=== PATIENT | female | born 1960 | race American Indian/Alaskan Native ===

== ENCOUNTER 2017-02-20 15:11 | Emergency (ER) | payer MEDICAID ==
[2017-02-20] MEDS ORDERED: Sodium Chloride 0.9% 10 ML Syringe FLUSH PRN (15:31)
[2017-02-20] MEDS ORDERED: Sodium Chloride 0.9% 2.5 ML Syringe FLUSH PRN (15:31)
[2017-02-20] MEDS ORDERED: Sodium Chloride 0.9% 1,000 ML IV ONE (15:33)
[2017-02-20] MEDS ORDERED: Lidocaine 2% Viscous Solution 15 ML Cup PO ONE ×2 (15:33→17:30)
[2017-02-20] MEDS ORDERED: Iopamidol 755 MG/ML 500 ML Multipack Bottle IVPUSH STA (15:38)
--- NOTE | 2017-02-20 15:39 | EDM.PDOC ---
ED HPI GENERAL MEDICAL PROBLEM - General Chief Complaint: General Stated Complaint: HEADACHE, SOB Time Seen by Provider: 02/20/17 15:17 - History of Present Illness INITIAL COMMENTS - FREE TEXT/NARRATIVE: HISTORY AND PHYSICAL: History of present illness: The patient is a 56-year-old female with a history of hypothyroidism, chronic lower back pain, colon cancer for which she underwent resection in September 2015 and is cancer free, and newly diagnosed ulcerative colitis--- she follows with Dr. Thomas at [facility] and had her last EGD in May 2016--- and presents with complaints of pain with swallowing and speaking more on the left side of her neck that started last evening. Patient denies eating anything unusual and denies any associated fever chills chest pain shortness of breath abdominal pain nausea or vomiting. The patient says she has a headache but it is more on the left side of her head but originates at her neck and radiates upward. Patient did not take anything for pain for this. The patient says she takes gabapentin for her chronic lower back pain protonix and thyroid medication. The patient says that she has been following via telephone with her GI specialist as she has changed insurance and has not been able to see him recently. She says that the colon cancer is in remission but she has had black stools for the last 2 months which her flat machine cutter is aware of and she is not concerned about and which is not new with her current throat pain. The patient also states that she has had an unexplained weight loss over the last several months for which her GI doctor is also following. She says that is not new with the throat pain either.. She has no abdominal pain. Patient denies and she has had a hysterectomy and she has also had a cholecystectomy and appendectomy. Patient has a history of tobacco use but quit 1 year ago. The patient says that she had a normal day yesterday and the pain started suddenly and she is here for evaluation. She is very stressed about this. Patient states when she does chew or open her mouth that seems to make the pain worse in her neck. It does not radiate to her posterior neck or her chest wall. Patient also states she had a left lung nodule on the left side that was followed and has never been biopsied Review of systems: As per history of present illness and below otherwise all systems reviewed and negative. Past medical history: As per history of present illness and as reviewed below otherwise noncontributory. Surgical history: As per history of present illness and as reviewed below otherwise noncontributory. Social history: No reported history of drug or alcohol abuse. Family history: As per history of present illness and as reviewed below otherwise noncontributory. Physical exam: Gen.: Well-developed well-nourished female who is speaking clearly without hoarseness muffled voice or stridor. She looks uncomfortable in the room and grimaces when she swallows her saliva. There is some exaggeration with her presentation and She is very anxious on my evaluation but is not breathless. Her vital signs have been noted by me. HEENT: Atraumatic, normocephalic, pupils reactive, negative for conjunctival pallor or scleral icterus, mucous membranes moist, throat clear without any erythema or exudates and no oropharyngeal swelling, neck supple, nontender, trachea midline. There is no gross thyromegaly but there is submandibular adenopathy bilaterally with tenderness on the left as well as some sternocleidomastoid tenderness on the left. There are no other palpable masses and no visible soft tissue swelling is seen. When the patient opened her mouth widely for me to do an oral exam she had a spasm in her sternocleidomastoid and stated that the pain got worse when she did that. Lungs: Clear to auscultation, breath sounds equal bilaterally, chest nontender. No stridor or wheezing or work of breathing Heart: S1S2, regular, negative for clicks, rubs, or JVD. Abdomen: Soft, nondistended, nontender. Negative for masses or hepatosplenomegaly. Negative for costovertebral tenderness. Pelvis: Stable nontender. Genitourinary: Deferred. Rectal: Deferred. Extremities: Atraumatic, negative for cords or calf pain. Neurovascular unremarkable. No pedal edema Neuro: Awake, alert, oriented. Cranial nerves II through XII unremarkable. Cerebellum unremarkable. Motor and sensory unremarkable throughout. Exam nonfocal. Diagnostics: EKG CBC CMP lactic acid TSH free T4 strep test CT scan of the soft tissue neck Therapeutics: IV fluids viscous lidocaine, Dilaudid Reeves clindamycin I discussed testing results with the patient and son at bedside including the CAT scan results. I have reevaluated her oral exam and in fact although the patient did not say she had to the pain she does have new significant decay to her left premolar tooth with some soft tissue swelling and tenderness in this region. There is no fluctuance or crepitance appreciated. I've advised follow- up with dentist as well as primary care and to contact her GI specialist for further care regarding her GI issues. Impression: Left neck pain/dental abscess Definitive disposition and diagnosis as appropriate pending reevaluation and review of above. Left Neck Pain Score (Numeric/FACES): 9 - Related Data Allergies Allergy/AdvReac Type Severity Reaction Status Date / Time ibuprofen [From Motrin] Allergy Acid Reflux Verified 02/20/17 15:22 ketorolac tromethamine Allergy Airway Verified 02/20/17 15:22 [From Toradol] Tightness Home Meds: Home Meds Gabapentin [Neurontin] 100 mg PO TID 04/02/15 [History] Omeprazole [Prilosec] 10 mg PO DAILY 04/02/15 [History] Acetaminophen [Tylenol] 1,000 mg PO Q4HR 02/20/17 [History] Levothyroxine 150 mcg PO ACBREAKFAST 02/20/17 [History] Melatonin 5 mg PO BEDTIME 02/20/17 [History] Past Medical History Gastrointestinal History: Reports: Other (See Below) Other Gastrointestinal History: ulcerative colitis Musculoskeletal History: Reports: Back Pain, Chronic Endocrine/Metabolic History: Reports: Hypothyroidism Oncologic (Cancer) History: Reports: Colon - Infectious Disease History Infectious Disease History: Reports: Chicken Pox - Past Surgical History GI Surgical History: Reports: Cholecystectomy Other GI Surgeries/Procedures: removal of portion of colon due to CA Female Surgical History: Reports: Oophorectomy Social & Family History - Family History Family Medical History: Noncontributory - Tobacco Use Smoking Status *Q: Former Smoker Years of Tobacco use: 5 Used Tobacco, but Quit: Yes Month Tobacco Last Used: "over a year" Second Hand Smoke Exposure: No - Caffeine Use Caffeine Use: Reports: Coffee Caffeine Use Comment: 2cups/day - Alcohol Use Days Per Week of Alcohol Use: 0 - Recreational Drug Use Recreational Drug Use: No ED ROS GENERAL - Review of Systems Review Of Systems: ROS reveals no pertinent complaints other than HPI. ED EXAM, GENERAL - Physical Exam Exam: See Below (See dictation) Course - Vital Signs Last Recorded V/S: Last Vital Signs Temp 36.7 C 02/20/17 15:17 Pulse 82 02/20/17 16:30 Resp 18 02/20/17 16:30 BP 108/62 02/20/17 16:30 Pulse Ox 99 02/20/17 16:30 - Orders/Labs/Meds Orders: Active Orders 24 hr Category Date Time Status Cardiac Monitoring [RC] . DIRECTED Care 02/20/17 15:31 Active EKG 12 Lead [EKG Documentation Completion] [RC] STAT Care 02/20/17 15:22 Active Oxygen Therapy, ED [RC] ASDIRECTED Care 02/20/17 15:31 Active Pulse Oximetry [RC] ASDIRECTED Care 02/20/17 15:31 Active Soft Tissue Neck w Cont [CT] Stat Exams 02/20/17 15:31 Taken CULTURE STREP A CONFIRMATION [] Stat Lab 02/20/17 15:35 Results STREP SCRN A RAPID W CULT CONF [] Stat Lab 02/20/17 15:35 Results Benzocaine [Hurricaine One 20%] Med 02/20/17 17:30 Once 2 each MUCMEM ONETIME ONE Clindamycin HCl [Cleocin] Med 02/20/17 17:29 Once 300 mg PO ONETIME ONE Lidocaine 2% [Xylocaine 2% Viscous] Med 02/20/17 17:30 Once 15 ml PO ONETIME ONE Sodium Chloride 0.9% [Saline Flush] Med 02/20/17 15:31 Active 10 ml FLUSH ASDIRECTED PRN Sodium Chloride 0.9% [Saline Flush] Med 02/20/17 15:31 Active 2.5 ml FLUSH ASDIRECTED PRN Saline Lock Insert [OM.PC] Stat Oth 02/20/17 15:31 Ordered Medication Orders Clindamycin HCl (Cleocin) 300 mg PO ONETIME ONE Stop: 02/20/17 17:30 Sodium Chloride (Saline Flush) 10 ml FLUSH ASDIRECTED PRN PRN Reason: Keep Vein Open Last Admin: 02/20/17 15:42 Dose: 10 ml Sodium Chloride (Saline Flush) 2.5 ml FLUSH ASDIRECTED PRN PRN Reason: Keep Vein Open Last Admin: 02/20/17 15:42 Dose: 2.5 ml Labs: Laboratory Tests 02/20/17 02/20/17 02/20/17 Range/Units 15:34 15:34 15:34 WBC 6.14 (4.0-11.0) K/uL RBC 4.31 (4.30-5.90) M/uL Hgb 13.8 (12.0-16.0) g/dL Hct 41.2 (36.0-46.0) % MCV 95.6 (80.0-98.0) fL MCH 32.0 (27.0-32.0) pg MCHC 33.5 (31.0-37.0) g/dL RDW Std Deviation 50.4 (28.0-62.0) fl RDW Coeff of Bharath 14 (11.0-15.0) % Plt Count 202 (150-400) K/uL MPV 10.20 (7.40-12.00) fL Neut % (Auto) 47.4 L (48.0-80.0) % Lymph % (Auto) 45.6 H (16.0-40.0) % Chambers % (Auto) 4.7 (0.0-15.0) % Eos % (Auto) 2.0 (0.0-7.0) % Baso % (Auto) 0.3 (0.0-1.5) % Neut # (Auto) 2.9 (1.4-5.7) K/uL Lymph # (Auto) 2.8 H (0.6-2.4) K/uL Chambers # (Auto) 0.3 (0.0-0.8) K/uL Eos # (Auto) 0.1 (0.0-0.7) K/uL Baso # (Auto) 0.0 (0.0-0.1) K/uL Nucleated RBC % 0.0 /100WBC Nucleated RBCs # 0 K/uL Lactate 0.9 (0.20-2.00) mmol/L Sodium 140 (136-146) mmol/L Potassium 3.7 (3.5-5.1) mmol/L Chloride 110 (98-110) mmol/L Carbon Dioxide 21 (21-31) mmol/L BUN 8 (6.0-23.0) mg/dL Creatinine 0.7 (0.6-1.5) mg/dL Est Cr Clr Drug Dosing 82.67 mL/min Estimated GFR (MDRD) > 60.0 ml/min Glucose 89 (60-110) mg/dL Calcium 8.9 (8.8-10.8) mg/dL Total Bilirubin 0.6 (0.1-1.5) mg/dL AST 16 (5-40) IU/L ALT 12 (8-54) IU/L Alkaline Phosphatase 82 (40-150) Total Protein 7.3 (6.0-8.0) g/dL Albumin 4.2 (3.5-5.0) g/dL Globulin 3.1 (2.0-3.5) g/dL Albumin/Globulin Ratio 1.4 (1.3-2.8) Free T4 1.03 (0.7-1.48) ng/dL TSH 3rd Generation 6.93 H (0.47-5.0) uIU/mL Meds: Medications Generic Name Dose Route Start Last Admin Trade Name Freq PRN Reason Stop Dose Admin Clindamycin HCl 300 mg 02/20/17 17:29 Cleocin PO 02/20/17 17:30 ONETIME ONE Sodium Chloride 10 ml 02/20/17 15:31 02/20/17 15:42 Saline Flush FLUSH 10 ml ASDIRECTED PRN Administration Keep Vein Open Sodium Chloride 2.5 ml 02/20/17 15:31 02/20/17 15:42 Saline Flush FLUSH 2.5 ml ASDIRECTED PRN Administration Keep Vein Open Discontinued Medications Generic Name Dose Route Start Last Admin Trade Name Freq PRN Reason Stop Dose Admin Hydromorphone HCl 1 mg 02/20/17 16:22 02/20/17 16:25 Dilaudid IVPUSH 02/20/17 16:23 1 mg ONETIME ONE Administration Sodium Chloride 1,000 mls @ 999 mls/hr 02/20/17 15:33 02/20/17 15:41 Normal Saline IV 02/20/17 16:33 999 mls/hr STAT ONE Administration Iopamidol 80 ml 02/20/17 15:38 02/20/17 15:40 Isovue Multipack-370 (76%) IVPUSH 02/20/17 15:39 80 ml ONETIME STA Administration Lidocaine HCl 15 ml 02/20/17 15:33 02/20/17 15:41 Xylocaine 2% Viscous PO 02/20/17 15:34 15 ml ONETIME ONE Administration Departure - Departure Time of Disposition: 17:32 Disposition: Home, Self-Care 01 Condition: Good Clinical Impression: Dental abscess, Neck pain - Discharge Information Forms: ED Department Discharge Additional Instructions: The following information is given to patients seen in the emergency department who are being discharged to home. This information is to outline your options for follow-up care. We provide all patients seen in our emergency department with a follow-up referral. The need for follow-up, as well as the timing and circumstances, are variable depending upon the specifics of your emergency department visit. If you don't have a primary care physician on staff, we will provide you with a referral. We always advise you to contact your personal physician following an emergency department visit to inform them of the circumstance of the visit and for follow-up with them and/or the need for any referrals to a consulting specialist. The emergency department will also refer you to a specialist when appropriate. This referral assures that you have the opportunity for followup care with a specialist. All of these measure are taken in an effort to provide you with optimal care, which includes your followup. Under all circumstances we always encourage you to contact your private physician who remains a resource for coordinating your care. When calling for followup care, please make the office aware that this follow-up is from your recent emergency room visit. If for any reason you are refused follow-up, please contact the [facility] emergency department at and ask to speak to the emergency department charge nurse. [facility] Primary care- Internal Medicine and Family [facility] [place] [phone] [facility] Specialty Care - ENT--[facility] [place] [id number] Use ice to area of pain and swelling and take all medication as prescribed. Please call and follow-up with a local dentist or oral surgeon for definitive care. You can also follow up with our ENT specialist using resources given to above. Return to ER as needed and as discussed. These also contact your GI specialist for further care regarding those issues. - My Orders Last 24 Hours: My Active Orders 02/20/17 15:22 EKG 12 Lead [EKG Documentation Completion] [RC] STAT 02/20/17 15:31 Cardiac Monitoring [RC] . DIRECTED Oxygen Therapy, ED [RC] ASDIRECTED Pulse Oximetry [RC] ASDIRECTED Soft Tissue Neck w Cont [CT] Stat Sodium Chloride 0.9% [Saline Flush] 10 ml FLUSH ASDIRECTED PRN Sodium Chloride 0.9% [Saline Flush] 2.5 ml FLUSH ASDIRECTED PRN Saline Lock Insert [OM.PC] Stat 02/20/17 15:35 CULTURE STREP A CONFIRMATION [RM] Stat STREP SCRN A RAPID W CULT CONF [RM] Stat 02/20/17 17:29 Clindamycin HCl [Cleocin] 300 mg PO ONETIME ONE 02/20/17 17:30 Benzocaine [Hurricaine One 20%] 2 each MUCMEM ONETIME ONE Lidocaine 2% [Xylocaine 2% Viscous] 15 ml PO ONETIME ONE - Assessment/Plan Last 24 Hours: My Active Orders 02/20/17 15:22 EKG 12 Lead [EKG Documentation Completion] [RC] STAT 02/20/17 15:31 Cardiac Monitoring [RC] . DIRECTED Oxygen Therapy, ED [RC] ASDIRECTED Pulse Oximetry [RC] ASDIRECTED Soft Tissue Neck w Cont [CT] Stat Sodium Chloride 0.9% [Saline Flush] 10 ml FLUSH ASDIRECTED PRN Sodium Chloride 0.9% [Saline Flush] 2.5 ml FLUSH ASDIRECTED PRN Saline Lock Insert [OM.PC] Stat 02/20/17 15:35 CULTURE STREP A CONFIRMATION [RM] Stat STREP SCRN A RAPID W CULT CONF [RM] Stat 02/20/17 17:29 Clindamycin HCl [Cleocin] 300 mg PO ONETIME ONE 02/20/17 17:30 Benzocaine [Hurricaine One 20%] 2 each MUCMEM ONETIME ONE Lidocaine 2% [Xylocaine 2% Viscous] 15 ml PO ONETIME ONE
[2017-02-20 16:11] LABS: CHLORIDE,CL 110 mmol/L (98-110); SODIUM,NA 140 mmol/L (136-146)
[2017-02-20] MEDS ORDERED: HYDROmorphone 2 MG/ML Syringe IVPUSH ONE (16:22)
[2017-02-20] MEDS ORDERED: Clindamycin HCl 150 MG Cap PO ONE (17:29)
[2017-02-20] MEDS ORDERED: Benzocaine 20% Topical Spray UD MUCMEM ONE (17:30)
[2017-02-20 17:41] VITALS: BP 135/77
--- NOTE | 2017-02-21 10:22 | CT ---
EXAM DATE: 02/20/17 PATIENT'S AGE: 56 Patient: SHAYNE MONROY Facility: [place], [place] Site . Site : [id number] Study: CT ST Neck [id number]/13/2017 4:49:50 PM Ordering Physician: Vernell Hurt Final Report: INDICATION: Left-sided neck pain with swallowing. CT NECK WITH CONTRAST TECHNIQUE: Axial multidetector CT imaging was performed through the neck following intravenous contrast administration using 80 mL Isovue 370. Coronal and sagittal reconstructions were generated. FINDINGS: No neck masses or abnormally enlarged lymph nodes are identified. There is no fluid collection suggestive of a soft tissue abscess. The included airway is within normal limits. The parotid, submandibular, and thyroid glands are unremarkable. Cervical vascular structures are within normal limits. Osseous structures show no significant findings. There are multiple missing teeth and there is dental caries and periodontal disease involving the remaining lower posterior. There is a small periapical lucency about the tip of the root of a remaining lower left tooth which has eroded through the medial cortex of the mandible, best seen on image 22 of series 203. Included skull base and lung apices are unremarkable. IMPRESSION: Periapical lucency about the tip of the root of a remaining lower left tooth with erosion through the medial mandibular cortex. This could be a source of left-sided pain. No other cause for left-sided neck pain is evident. BIRDIE RINALDI MD [employer] Dictated by Rakesh Rinaldi MD @ 02/20/2017 5:21:32 PM Dictated by: Rakesh Rinaldi MD @ 02/20/2017 17:24:27 (Electronic Signature) Report Signed by Proxy. [facility]
== END 2017-02-20 17:48 | disposition home or self-care (01) ==
LOC: MW.ED 15:11
DX: K04.7 Periapical abscess without sinus (principal); M54.2 Cervicalgia; E03.9 Hypothyroidism, unspecified; Z90.49 Acquired absence of other specified parts of digestive tract; Z85.038 Personal history of other malignant neoplasm of large intestine; Z79.899 Other long term (current) drug therapy; Z88.6 Allergy status to analgesic agent; Z87.891 Personal history of nicotine dependence
CPT/HCPCS: 70491; 80053; 83605; 84439; 84443; 85025; 87081; 87880; 93005; 96361; 96374; 99284; A9270; J1170; J7040; Q9967

== ENCOUNTER 2017-04-02 09:45 | Emergency (ER) | payer SELFPAY ==
--- NOTE | 2017-04-02 09:55 | EDM.PDOC ---
ED HPI GENERAL MEDICAL PROBLEM - General Chief Complaint: Abdominal Pain Stated Complaint: ABDOMINAL PAIN Time Seen by Provider: 04/02/17 09:55 Source of Information: Reports: Patient History Limitations: Reports: No Limitations - History of Present Illness INITIAL COMMENTS - FREE TEXT/NARRATIVE: HISTORY AND PHYSICAL: []56-year-old female presenting with upper quadrant pain on the left History of Present Illness: []Pain has been present for the last 3 days. She does report diarrhea. She has been vomiting this morning. Patient states that she has had ulcers in the past but not feeling like her ulcer stated Reports cromion in her water at home and she is concerned about lead levels causing this Review of her chart reveals history of ulcerative colitis as above November 2015 Review of Systems: As per history of present illness and below otherwise all systems reviewed and negative. Past medical history: As per history of present illness and as reviewed below otherwise noncontributory. Surgical history: As per history of present illness and as reviewed below otherwise noncontributory. Social history: No reported history of drug or alcohol abuse. Family history: As per history of present illness and as reviewed below otherwise noncontributory. Physical exam: HEENT: Atraumatic, normocehpalic, pupils reactive, negative for conjunctival pallor or scleral icterus, mucous membranes moist, throat clear, neck supple, nontender, trachea midline. Lungs: Clear to auscultation, breath sounds equal bilaterally, chest non tender. Heart: S1S2, regular, negative for clicks, rubs, or JVD. Abdomen: Soft, nondistended, tender left epigastric no rebound significant guarding. Negative for masses or hepatossplenmegaly. Negative for costovertebral tenderness. Pelvis: Stable nontender. Genitourinary: Deferred. Rectal: Deferred Extremities: Atraumatic, negative for cords or calf pain. Neurovascular unremarkable. Neuro: Awake, alert, oriented. Cranial nerves II through XII unremarkable. Cerebellum unremarkable. Motor and sensory unremarkable throughout. Exam nonfocal. Diagnostics: [CBC CMP amylase lipase H. pylori abdominal CT with contrast EKG] Therapeutics: [Dilaudid and Zofran Pepcid normal saline] Impression: [] Plan: [] Definitive disposition and diagnosis as appropriate pending reevaluation and review of above. Onset: Sudden Duration: Day(s): (3) Location: Reports: Abdomen (Upper left) Quality: Reports: Stabbing Severity: Severe Improves with: Reports: None abdomen Pain Score (Numeric/FACES): 9 - Related Data Allergies Allergy/AdvReac Type Severity Reaction Status Date / Time ibuprofen [From Motrin] Allergy Acid Reflux Verified 04/02/17 09:49 ketorolac tromethamine Allergy Airway Verified 04/02/17 09:49 [From Toradol] Tightness Home Meds: Home Meds Gabapentin [Neurontin] 1,200 mg PO TID 04/02/15 [History] Levothyroxine 150 mcg PO ACBREAKFAST 02/20/17 [History] GI Cocktail 30 ml PO ONETIME #1 bottle 04/02/17 [Rx] Pantoprazole [ProTONIX] 40 mg PO DAILY 04/02/17 [History] Past Medical History Gastrointestinal History: Reports: Other (See Below) Other Gastrointestinal History: ulcerative colitis Musculoskeletal History: Reports: Back Pain, Chronic Endocrine/Metabolic History: Reports: Hypothyroidism Oncologic (Cancer) History: Reports: Colon - Infectious Disease History Infectious Disease History: Reports: Chicken Pox - Past Surgical History GI Surgical History: Reports: Cholecystectomy Other GI Surgeries/Procedures: removal of portion of colon due to CA Female Surgical History: Reports: Oophorectomy Social & Family History - Family History Family Medical History: Noncontributory - Tobacco Use Smoking Status *Q: Former Smoker Years of Tobacco use: 5 Used Tobacco, but Quit: Yes Month Tobacco Last Used: "over a year" Second Hand Smoke Exposure: No - Caffeine Use Caffeine Use: Reports: Coffee Caffeine Use Comment: 2cups/day - Alcohol Use Days Per Week of Alcohol Use: 0 - Recreational Drug Use Recreational Drug Use: No ED ROS GENERAL - Review of Systems Review Of Systems: See Below (History of ulcerative colitis) ED EXAM, GI/ABD - Physical Exam Exam: See Below Course - Vital Signs Last Recorded V/S: Last Vital Signs Temp 36.7 C 04/02/17 09:52 Pulse 80 04/02/17 09:52 Resp 20 04/02/17 09:52 BP 138/89 04/02/17 09:52 Pulse Ox - Orders/Labs/Meds Orders: Active Orders 24 hr Category Date Time Status EKG Documentation Completion [RC] STAT Care 04/02/17 10:17 Active LEAD [REF] Stat Lab 04/02/17 09:50 Received Sodium Chloride 0.9% [Normal Saline] 1,000 ml Med 04/02/17 12:39 Active IV STAT Sodium Chloride 0.9% [Saline Flush] Med 04/02/17 10:18 Active 10 ml FLUSH ASDIRECTED PRN Sodium Chloride 0.9% [Saline Flush] Med 04/02/17 10:18 Active 2.5 ml FLUSH ASDIRECTED PRN Saline Lock Insert [OM.PC] Stat Oth 04/02/17 10:17 Ordered Medication Orders Sodium Chloride (Normal Saline) 1,000 mls @ 999 mls/hr IV STAT ONE Stop: 04/02/17 13:39 Last Admin: 04/02/17 12:46 Dose: 999 mls/hr Sodium Chloride (Saline Flush) 10 ml FLUSH ASDIRECTED PRN PRN Reason: Keep Vein Open Last Admin: 04/02/17 10:27 Dose: 10 ml Sodium Chloride (Saline Flush) 2.5 ml FLUSH ASDIRECTED PRN PRN Reason: Keep Vein Open Last Admin: 04/02/17 10:27 Dose: 2.5 ml Labs: Laboratory Tests 04/02/17 04/02/17 04/02/17 Range/Units 09:50 09:50 09:50 WBC 7.49 (4.0-11.0) K/uL RBC 4.50 (4.30-5.90) M/uL Hgb 14.5 (12.0-16.0) g/dL Hct 43.2 (36.0-46.0) % MCV 96.0 (80.0-98.0) fL MCH 32.2 H (27.0-32.0) pg MCHC 33.6 (31.0-37.0) g/dL RDW Std Deviation 49.0 (28.0-62.0) fl RDW Coeff of Bharath 14 (11.0-15.0) % Plt Count 212 (150-400) K/uL MPV 10.40 (7.40-12.00) fL Neut % (Auto) 68.0 (48.0-80.0) % Lymph % (Auto) 26.4 (16.0-40.0) % [place] % (Auto) 4.8 (0.0-15.0) % Eos % (Auto) 0.7 (0.0-7.0) % Baso % (Auto) 0.1 (0.0-1.5) % Neut # (Auto) 5.1 (1.4-5.7) K/uL Lymph # (Auto) 2.0 (0.6-2.4) K/uL [place] # (Auto) 0.4 (0.0-0.8) K/uL Eos # (Auto) 0.1 (0.0-0.7) K/uL Baso # (Auto) 0.0 (0.0-0.1) K/uL Nucleated RBC % 0.0 /100WBC Nucleated RBCs # 0 K/uL Lactate (0.20-2.00) mmol/L Sodium 142 (136-146) mmol/L Potassium 3.8 (3.5-5.1) mmol/L Chloride 108 (98-110) mmol/L Carbon Dioxide 25 (21-31) mmol/L BUN 7 (6.0-23.0) mg/dL Creatinine 0.8 (0.6-1.5) mg/dL Est Cr Clr Drug Dosing 72.34 mL/min Estimated GFR (MDRD) > 60.0 ml/min Glucose 105 (60-110) mg/dL Calcium 9.2 (8.8-10.8) mg/dL Total Bilirubin 0.4 (0.1-1.5) mg/dL AST 16 (5-40) IU/L ALT 14 (8-54) IU/L Alkaline Phosphatase 84 (40-150) Ammonia 52 (14-68) UG/DL Total Protein 7.7 (6.0-8.0) g/dL Albumin 4.2 (3.5-5.0) g/dL Globulin 3.5 (2.0-3.5) g/dL Albumin/Globulin Ratio 1.2 L (1.3-2.8) Amylase 24 (10-90) U/L Lipase 9 (7-80) U/L TSH 3rd Generation 34.55 H (0.47-5.0) uIU/mL Urine Color Urine Appearance Urine pH (5.0-8.0) Ur Specific [place] (1.001-1.035) Urine Protein (NEGATIVE) mg/dL Urine Glucose (UA) (NEGATIVE) mg/dL Urine Ketones (NEGATIVE) mg/dL Urine Occult Blood (NEGATIVE) Urine Nitrite (NEGATIVE) Urine Bilirubin (NEGATIVE) Urine Urobilinogen (<2.0) EU/dL Ur Leukocyte Esterase (NEGATIVE) Urine RBC (0-2/HPF) Urine WBC (0-5/HPF) Ur Epithelial Cells (NONE-FEW) Urine Bacteria (NEGATIVE) Urine HCG, Qual (NEGATIVE) Urine Opiates Screen (NEGATIVE) Ur Oxycodone Screen (NEGATIVE) Urine Methadone Screen (NEGATIVE) Ur Barbiturates Screen (NEGATIVE) Ur Phencyclidine Scrn (NEGATIVE) Ur Amphetamine Screen (NEGATIVE) U Methamphetamines Scrn (NEGATIVE) U Benzodiazepines Scrn (NEGATIVE) U Cocaine Metab Screen (NEGATIVE) U Marijuana (THC) Screen (NEGATIVE) H. pylori IgG Antibody (NEG) 04/02/17 04/02/17 04/02/17 Range/Units 09:50 10:00 10:00 WBC (4.0-11.0) K/uL RBC (4.30-5.90) M/uL Hgb (12.0-16.0) g/dL Hct (36.0-46.0) % MCV (80.0-98.0) fL MCH (27.0-32.0) pg MCHC (31.0-37.0) g/dL RDW Std Deviation (28.0-62.0) fl RDW Coeff of Bharath (11.0-15.0) % Plt Count (150-400) K/uL MPV (7.40-12.00) fL Neut % (Auto) (48.0-80.0) % Lymph % (Auto) (16.0-40.0) % [place] % (Auto) (0.0-15.0) % Eos % (Auto) (0.0-7.0) % Baso % (Auto) (0.0-1.5) % Neut # (Auto) (1.4-5.7) K/uL Lymph # (Auto) (0.6-2.4) K/uL [place] # (Auto) (0.0-0.8) K/uL Eos # (Auto) (0.0-0.7) K/uL Baso # (Auto) (0.0-0.1) K/uL Nucleated RBC % /100WBC Nucleated RBCs # K/uL Lactate (0.20-2.00) mmol/L Sodium (136-146) mmol/L Potassium (3.5-5.1) mmol/L Chloride (98-110) mmol/L Carbon Dioxide (21-31) mmol/L BUN (6.0-23.0) mg/dL Creatinine (0.6-1.5) mg/dL Est Cr Clr Drug Dosing mL/min Estimated GFR (MDRD) ml/min Glucose (60-110) mg/dL Calcium (8.8-10.8) mg/dL Total Bilirubin (0.1-1.5) mg/dL AST (5-40) IU/L ALT (8-54) IU/L Alkaline Phosphatase (40-150) Ammonia (14-68) UG/DL Total Protein (6.0-8.0) g/dL Albumin (3.5-5.0) g/dL Globulin (2.0-3.5) g/dL Albumin/Globulin Ratio (1.3-2.8) Amylase (10-90) U/L Lipase (7-80) U/L TSH 3rd Generation (0.47-5.0) uIU/mL Urine Color YELLOW Urine Appearance CLEAR Urine pH 7.0 (5.0-8.0) Ur Specific [place] 1.015 (1.001-1.035) Urine Protein NEGATIVE (NEGATIVE) mg/dL Urine Glucose (UA) NEGATIVE (NEGATIVE) mg/dL Urine Ketones NEGATIVE (NEGATIVE) mg/dL Urine Occult Blood SMALL H (NEGATIVE) Urine Nitrite NEGATIVE (NEGATIVE) Urine Bilirubin NEGATIVE (NEGATIVE) Urine Urobilinogen 0.2 (<2.0) EU/dL Ur Leukocyte Esterase NEGATIVE (NEGATIVE) Urine RBC 0-3 (0-2/HPF) Urine WBC 0-1 (0-5/HPF) Ur Epithelial Cells RARE (NONE-FEW) Urine Bacteria RARE (NEGATIVE) Urine HCG, Qual NEGATIVE (NEGATIVE) Urine Opiates Screen (NEGATIVE) Ur Oxycodone Screen (NEGATIVE) Urine Methadone Screen (NEGATIVE) Ur Barbiturates Screen (NEGATIVE) Ur Phencyclidine Scrn (NEGATIVE) Ur Amphetamine Screen (NEGATIVE) U Methamphetamines Scrn (NEGATIVE) U Benzodiazepines Scrn (NEGATIVE) U Cocaine Metab Screen (NEGATIVE) U Marijuana (THC) Screen (NEGATIVE) H. pylori IgG Antibody NEGATIVE (NEG) 04/02/17 04/02/17 Range/Units 10:00 10:29 WBC (4.0-11.0) K/uL RBC (4.30-5.90) M/uL Hgb (12.0-16.0) g/dL Hct (36.0-46.0) % MCV (80.0-98.0) fL MCH (27.0-32.0) pg MCHC (31.0-37.0) g/dL RDW Std Deviation (28.0-62.0) fl RDW Coeff of Bharath (11.0-15.0) % Plt Count (150-400) K/uL MPV (7.40-12.00) fL Neut % (Auto) (48.0-80.0) % Lymph % (Auto) (16.0-40.0) % [place] % (Auto) (0.0-15.0) % Eos % (Auto) (0.0-7.0) % Baso % (Auto) (0.0-1.5) % Neut # (Auto) (1.4-5.7) K/uL Lymph # (Auto) (0.6-2.4) K/uL [place] # (Auto) (0.0-0.8) K/uL Eos # (Auto) (0.0-0.7) K/uL Baso # (Auto) (0.0-0.1) K/uL Nucleated RBC % /100WBC Nucleated RBCs # K/uL Lactate 2.3 H (0.20-2.00) mmol/L Sodium (136-146) mmol/L Potassium (3.5-5.1) mmol/L Chloride (98-110) mmol/L Carbon Dioxide (21-31) mmol/L BUN (6.0-23.0) mg/dL Creatinine (0.6-1.5) mg/dL Est Cr Clr Drug Dosing mL/min Estimated GFR (MDRD) ml/min Glucose (60-110) mg/dL Calcium (8.8-10.8) mg/dL Total Bilirubin (0.1-1.5) mg/dL AST (5-40) IU/L ALT (8-54) IU/L Alkaline Phosphatase (40-150) Ammonia (14-68) UG/DL Total Protein (6.0-8.0) g/dL Albumin (3.5-5.0) g/dL Globulin (2.0-3.5) g/dL Albumin/Globulin Ratio (1.3-2.8) Amylase (10-90) U/L Lipase (7-80) U/L TSH 3rd Generation (0.47-5.0) uIU/mL Urine Color Urine Appearance Urine pH (5.0-8.0) Ur Specific [place] (1.001-1.035) Urine Protein (NEGATIVE) mg/dL Urine Glucose (UA) (NEGATIVE) mg/dL Urine Ketones (NEGATIVE) mg/dL Urine Occult Blood (NEGATIVE) Urine Nitrite (NEGATIVE) Urine Bilirubin (NEGATIVE) Urine Urobilinogen (<2.0) EU/dL Ur Leukocyte Esterase (NEGATIVE) Urine RBC (0-2/HPF) Urine WBC (0-5/HPF) Ur Epithelial Cells (NONE-FEW) Urine Bacteria (NEGATIVE) Urine HCG, Qual (NEGATIVE) Urine Opiates Screen NEGATIVE (NEGATIVE) Ur Oxycodone Screen NEGATIVE (NEGATIVE) Urine Methadone Screen NEGATIVE (NEGATIVE) Ur Barbiturates Screen NEGATIVE (NEGATIVE) Ur Phencyclidine Scrn NEGATIVE (NEGATIVE) Ur Amphetamine Screen NEGATIVE (NEGATIVE) U Methamphetamines Scrn NEGATIVE (NEGATIVE) U Benzodiazepines Scrn NEGATIVE (NEGATIVE) U Cocaine Metab Screen NEGATIVE (NEGATIVE) U Marijuana (THC) Screen POSITIVE (NEGATIVE) H. pylori IgG Antibody (NEG) Meds: Medications Generic Name Dose Route Start Last Admin Trade Name Freq PRN Reason Stop Dose Admin Sodium Chloride 1,000 mls @ 999 mls/hr 04/02/17 12:39 04/02/17 12:46 Normal Saline IV 04/02/17 13:39 999 mls/hr STAT ONE Administration Sodium Chloride 10 ml 04/02/17 10:18 04/02/17 10:27 Saline Flush FLUSH 10 ml ASDIRECTED PRN Administration Keep Vein Open Sodium Chloride 2.5 ml 04/02/17 10:18 04/02/17 10:27 Saline Flush FLUSH 2.5 ml ASDIRECTED PRN Administration Keep Vein Open Discontinued Medications Generic Name Dose Route Start Last Admin Trade Name Freq PRN Reason Stop Dose Admin Al Hydroxide/Mg Hydroxide 15 0 ml 04/02/17 12:38 04/02/17 12:46 ml/ Metoclopramide HCl 5 mg/ PO 04/02/17 12:39 25 each Lidocaine HCl 5 ml ONETIME ONE Administration Famotidine 20 mg 04/02/17 10:23 04/02/17 10:31 Pepcid IVPUSH 04/02/17 10:24 20 mg ONETIME ONE Administration Hydromorphone HCl 1 mg 04/02/17 10:18 04/02/17 10:25 Dilaudid IVPUSH 04/02/17 10:19 1 mg ONETIME ONE Administration Hydromorphone HCl 1 mg 04/02/17 11:32 04/02/17 11:37 Dilaudid IVPUSH 04/02/17 11:33 1 mg ONETIME ONE Administration Sodium Chloride 1,000 mls @ 999 mls/hr 04/02/17 10:18 04/02/17 10:25 Normal Saline IV 04/02/17 11:18 999 mls/hr STAT ONE Administration Iopamidol 85 ml 04/02/17 11:29 04/02/17 11:29 Isovue Multipack-370 (76%) IVPUSH 04/02/17 11:30 85 ml ONETIME STA Administration Ondansetron HCl 4 mg 04/02/17 10:24 04/02/17 10:31 Zofran IVPUSH 04/02/17 10:25 4 mg ONETIME ONE Administration Departure - Departure Time of Disposition: 13:06 Disposition: Home, Self-Care 01 Condition: Good Clinical Impression: Abdominal pain Qualifiers: Abdominal location: left upper quadrant Qualified Code(s): R10.12 - Left upper quadrant pain - Discharge Information Prescriptions: GI Cocktail 30 ml PO ONETIME #1 bottle Instructions: Nausea and Vomiting, Adult, [id number] Referrals: PCP,None [Primary Care Provider] - Anthony Dickson MD [Physician] - Forms: ED Department Discharge Additional Instructions: The following information is given to patients seen in the emergency department who are being discharged to home. This information is to outline your options for follow-up care. We provide all patients seen in our emergency department with a follow-up referral. The need for follow-up, as well as the timing and circumstances, are variable depending upon the specifics of your emergency department visit. If you don't have a primary care physician on staff, we will provide you with a referral. We always advise you to contact your personal physician following an emergency department visit to inform them of the circumstance of the visit and for follow-up with them and/or the need for any referrals to a consulting specialist. The emergency department will also refer you to a specialist when appropriate. This referral assures that you have the opportunity for followup care with a specialist. All of these measure are taken in an effort to provide you with optimal care, which includes your followup. Under all circumstances we always encourage you to contact your private physician who remains a resource for coordinating your care. When calling for followup care, please make the office aware that this follow-up is from your recent emergency room visit. If for any reason you are refused follow-up, please contact the [facility] emergency department at and asked to speak to the emergency department charge nurse. Referral has been made for you to see Dr. Yessi TINEO [facility] Professional Building [address] [place] [address], [address] [place] [address] Please call for follow-up appointment - My Orders Last 24 Hours: My Active Orders 04/02/17 09:50 LEAD [REF] Stat 04/02/17 10:17 EKG Documentation Completion [RC] STAT Saline Lock Insert [OM.PC] Stat 04/02/17 10:18 Sodium Chloride 0.9% [Saline Flush] 10 ml FLUSH ASDIRECTED PRN Sodium Chloride 0.9% [Saline Flush] 2.5 ml FLUSH ASDIRECTED PRN 04/02/17 12:39 Sodium Chloride 0.9% [Normal Saline] 1,000 ml IV STAT - Assessment/Plan Last 24 Hours: My Active Orders 04/02/17 09:50 LEAD [REF] Stat 04/02/17 10:17 EKG Documentation Completion [RC] STAT Saline Lock Insert [OM.PC] Stat 04/02/17 10:18 Sodium Chloride 0.9% [Saline Flush] 10 ml FLUSH ASDIRECTED PRN Sodium Chloride 0.9% [Saline Flush] 2.5 ml FLUSH ASDIRECTED PRN 04/02/17 12:39 Sodium Chloride 0.9% [Normal Saline] 1,000 ml IV STAT
[2017-04-02] MEDS ORDERED: Sodium Chloride 0.9% 2.5 ML Syringe FLUSH PRN (10:18)
[2017-04-02] MEDS ORDERED: Sodium Chloride 0.9% 1,000 ML IV ONE ×2 (10:18→12:39)
[2017-04-02] MEDS ORDERED: HYDROmorphone 1 MG/ML Syringe IVPUSH ONE ×2 (10:18→11:32)
[2017-04-02] MEDS ORDERED: Sodium Chloride 0.9% 10 ML Syringe FLUSH PRN (10:18)
[2017-04-02] MEDS ORDERED: Famotidine 20 MG/2 ML SDV IVPUSH ONE (10:23)
[2017-04-02] MEDS ORDERED: Ondansetron 4 MG/2 ML SDV IVPUSH ONE (10:24)
[2017-04-02 10:50] LABS: CHLORIDE,CL 108 mmol/L (98-110); SODIUM,NA 142 mmol/L (136-146)
[2017-04-02] MEDS ORDERED: Iopamidol 755 MG/ML 500 ML Multipack Bottle IVPUSH STA (11:29)
--- NOTE | 2017-04-02 11:47 | CT ---
CT of the abdomen and pelvis with contrast. HISTORY: Pain TECHNIQUE: Axial CT images were obtained of the abdomen and pelvis following administration of 85 mL of Isovue-370 in the left antecubital fossa without complication. Coronal and sagittal reconstructi ons obtained. FINDINGS: There is a partially visualized intrafissural lymph node within the right major fissure. Tiny 3 mm s ubpleural nodule within the left lower lobe laterally. The liver, adrenal glands, and pancreas appear grossly unremarkable. Small splenic cysts noted. The common bile duct measures up to 1.5 cm. Cholecystectomy. The kidneys enhance and function symmetrically without evidence of obstructive uropathy. The large and small bowel are normal in caliber without evidence of obstruction. The appendix appear s normal. No free pelvic fluid. The urinary bladder is decompressed. Subchondral cystic change noted within the hips bilaterally. IMPRESSION: 1. No acute findings demonstrated within the abdomen or pelvis. 2. Degenerative changes noted within the hips bilaterally. 3. Cholecystectomy with a mild prominence of the common bile duct, likely reservoir effect.
[2017-04-02] MEDS ORDERED: Alum Hydrox/Mag Hydrox/Simeth 15 ML, Metoclopramide 5 MG, Lidocaine 2% 5 ML PO ONE ×3 (12:38)
[2017-04-02 19:06] VITALS: BP 116/70
== END 2017-04-02 13:27 | disposition home or self-care (01) ==
LOC: MW.ED 09:45
DX: R10.12 Left upper quadrant pain (principal); E03.9 Hypothyroidism, unspecified; Z90.49 Acquired absence of other specified parts of digestive tract; Z88.6 Allergy status to analgesic agent; Z90.710 Acquired absence of both cervix and uterus; Z87.891 Personal history of nicotine dependence; Z79.899 Other long term (current) drug therapy
CPT/HCPCS: 36415; 74177; 80053; 80305; 81001; 81025; 82140; 82150; 83605; 83655; 83690; 84443; 85025; 86677; 93005; 96361; 96374; 96375; 96376; 99284; A9270; J1170; J2405; J7040; Q9967

== ENCOUNTER 2017-04-18 15:28 | Emergency (ER) | payer SELFPAY ==
--- NOTE | 2017-04-18 15:41 | EDM.PDOC ---
ED HPI GENERAL MEDICAL PROBLEM - General Stated Complaint: CHEST PAIN Time Seen by Provider: 04/18/17 15:40 Source of Information: Reports: Patient - History of Present Illness INITIAL COMMENTS - FREE TEXT/NARRATIVE: HISTORY AND PHYSICAL: History of present illness: []Patient presents with left upper quadrant pain radiating to the back similar to previous, she was seen 2 weeks prior with similar complaint normal lab and CT abdomen pelvis at that time. Patient was referred to general surgery at that time, she did not follow with general surgeon. She has history of multiple colon polyps and last colonoscopy September 2015 No fever nausea vomiting chills sweats no chest pain shortness breath headache dizziness or palpitation no bowel or urine symptoms Review of systems: As per history of present illness and below otherwise all systems reviewed and negative. Past medical history: As per history of present illness and as reviewed below otherwise noncontributory. Surgical history: As per history of present illness and as reviewed below otherwise noncontributory. Social history: No reported history of drug or alcohol abuse. Family history: As per history of present illness and as reviewed below otherwise noncontributory. Physical exam: HEENT: Atraumatic, normocephalic, pupils reactive, negative for conjunctival pallor or scleral icterus, mucous membranes moist, throat clear, neck supple, nontender, trachea midline. Lungs: Clear to auscultation, breath sounds equal bilaterally, chest nontender. Heart: S1S2, regular, negative for clicks, rubs, or JVD. Abdomen: Soft, nondistended, nontender. Negative for masses or hepatosplenomegaly. Negative for costovertebral tenderness. Pelvis: Stable nontender. Genitourinary: Deferred. Rectal: Deferred. Extremities: Atraumatic, negative for cords or calf pain. Neurovascular unremarkable. Neuro: Awake, alert, oriented. Cranial nerves II through XII unremarkable. Cerebellum unremarkable. Motor and sensory unremarkable throughout. Exam nonfocal. Diagnostics: [CBC, CMP, UA, troponin, amylase lipase, CRP EKG Chest 1 view Therapeutics: []1 L normal saline bolus Bentyl 20 mg by mouth 4 times a day when necessary #40 no refill Impression: []Abdominal pain Drug-seeking behavior Definitive disposition and diagnosis as appropriate pending reevaluation and review of above. Chest Pain Score (Numeric/FACES): 10 - Related Data Allergies Allergy/AdvReac Type Severity Reaction Status Date / Time ibuprofen [From Motrin] Allergy Acid Reflux Verified 04/18/17 15:33 ketorolac tromethamine Allergy Airway Verified 04/18/17 15:33 [From Toradol] Tightness Home Meds: Home Meds Gabapentin [Neurontin] 1,200 mg PO TID 04/02/15 [History] Levothyroxine 150 mcg PO ACBREAKFAST 02/20/17 [History] GI Cocktail 30 ml PO ONETIME #1 bottle 04/02/17 [Rx] Pantoprazole [ProTONIX] 40 mg PO DAILY 04/02/17 [History] Past Medical History - Past Health History Medical/Surgical History: Denies Medical/Surgical History Gastrointestinal History: Reports: Other (See Below) Other Gastrointestinal History: ulcerative colitis Musculoskeletal History: Reports: Back Pain, Chronic Endocrine/Metabolic History: Reports: Hypothyroidism Oncologic (Cancer) History: Reports: Colon - Infectious Disease History Infectious Disease History: Reports: Chicken Pox - Past Surgical History GI Surgical History: Reports: Cholecystectomy Other GI Surgeries/Procedures: removal of portion of colon due to CA Female Surgical History: Reports: Oophorectomy Social & Family History - Family History Family Medical History: Noncontributory - Tobacco Use Smoking Status *Q: Former Smoker Years of Tobacco use: 5 Used Tobacco, but Quit: Yes Month Tobacco Last Used: "over a year" Second Hand Smoke Exposure: No - Caffeine Use Caffeine Use: Reports: Coffee Caffeine Use Comment: 2cups/day - Alcohol Use Days Per Week of Alcohol Use: 0 - Recreational Drug Use Recreational Drug Use: No ED ROS GENERAL - Review of Systems Review Of Systems: ROS reveals no pertinent complaints other than HPI. ED EXAM, GENERAL - Physical Exam Exam: See Below Course - Vital Signs Last Recorded V/S: Last Vital Signs Temp 36.6 C 04/18/17 15:33 Pulse 83 04/18/17 16:42 Resp 16 04/18/17 16:42 BP 117/85 04/18/17 16:42 Pulse Ox 99 04/18/17 16:42 - Orders/Labs/Meds Orders: Active Orders 24 hr Category Date Time Status EKG Documentation Completion [RC] STAT Care 04/18/17 15:41 Active Labs: Laboratory Tests 04/18/17 04/18/17 04/18/17 Range/Units 15:41 15:41 15:41 WBC 7.46 (4.0-11.0) K/uL RBC 4.39 (4.30-5.90) M/uL Hgb 14.2 (12.0-16.0) g/dL Hct 42.7 (36.0-46.0) % MCV 97.3 (80.0-98.0) fL MCH 32.3 H (27.0-32.0) pg MCHC 33.3 (31.0-37.0) g/dL RDW Std Deviation 49.9 (28.0-62.0) fl RDW Coeff of Bharath 14 (11.0-15.0) % Plt Count 202 (150-400) K/uL MPV 10.00 (7.40-12.00) fL Neut % (Auto) 53.3 (48.0-80.0) % Lymph % (Auto) 39.3 (16.0-40.0) % Archer % (Auto) 5.0 (0.0-15.0) % Eos % (Auto) 1.9 (0.0-7.0) % Baso % (Auto) 0.5 (0.0-1.5) % Neut # (Auto) 4.0 (1.4-5.7) K/uL Lymph # (Auto) 2.9 H (0.6-2.4) K/uL Archer # (Auto) 0.4 (0.0-0.8) K/uL Eos # (Auto) 0.1 (0.0-0.7) K/uL Baso # (Auto) 0.0 (0.0-0.1) K/uL Nucleated RBC % 0.0 /100WBC Nucleated RBCs # 0 K/uL Sodium 144 (136-146) mmol/L Potassium 3.8 (3.5-5.1) mmol/L Chloride 111 H (98-110) mmol/L Carbon Dioxide 24 (21-31) mmol/L BUN 10 (6.0-23.0) mg/dL Creatinine 0.8 (0.6-1.5) mg/dL Est Cr Clr Drug Dosing 72.34 mL/min Estimated GFR (MDRD) > 60.0 ml/min Glucose 78 (60-110) mg/dL Calcium 9.0 (8.8-10.8) mg/dL Total Bilirubin 0.2 (0.1-1.5) mg/dL AST 15 (5-40) IU/L ALT 12 (8-54) IU/L Alkaline Phosphatase 85 (40-150) Troponin I < 0.10 (0.0-0.29) NG/ML C-Reactive Protein 0.09 (0.0-0.5) mg/dL Total Protein 7.7 (6.0-8.0) g/dL Albumin 4.0 (3.5-5.0) g/dL Globulin 3.7 H (2.0-3.5) g/dL Albumin/Globulin Ratio 1.1 L (1.3-2.8) Amylase 28 (10-90) U/L Lipase 8 (7-80) U/L Urine Color Urine Appearance Urine pH (5.0-8.0) Ur Specific [place] (1.001-1.035) Urine Protein (NEGATIVE) mg/dL Urine Glucose (UA) (NEGATIVE) mg/dL Urine Ketones (NEGATIVE) mg/dL Urine Occult Blood (NEGATIVE) Urine Nitrite (NEGATIVE) Urine Bilirubin (NEGATIVE) Urine Urobilinogen (<2.0) EU/dL Ur Leukocyte Esterase (NEGATIVE) Urine RBC (0-2/HPF) Urine WBC (0-5/HPF) Ur Epithelial Cells (NONE-FEW) Urine Bacteria (NEGATIVE) 04/18/17 Range/Units 16:45 WBC (4.0-11.0) K/uL RBC (4.30-5.90) M/uL Hgb (12.0-16.0) g/dL Hct (36.0-46.0) % MCV (80.0-98.0) fL MCH (27.0-32.0) pg MCHC (31.0-37.0) g/dL RDW Std Deviation (28.0-62.0) fl RDW Coeff of Bharath (11.0-15.0) % Plt Count (150-400) K/uL MPV (7.40-12.00) fL Neut % (Auto) (48.0-80.0) % Lymph % (Auto) (16.0-40.0) % Archer % (Auto) (0.0-15.0) % Eos % (Auto) (0.0-7.0) % Baso % (Auto) (0.0-1.5) % Neut # (Auto) (1.4-5.7) K/uL Lymph # (Auto) (0.6-2.4) K/uL [place] # (Auto) (0.0-0.8) K/uL Eos # (Auto) (0.0-0.7) K/uL Baso # (Auto) (0.0-0.1) K/uL Nucleated RBC % /100WBC Nucleated RBCs # K/uL Sodium (136-146) mmol/L Potassium (3.5-5.1) mmol/L Chloride (98-110) mmol/L Carbon Dioxide (21-31) mmol/L BUN (6.0-23.0) mg/dL Creatinine (0.6-1.5) mg/dL Est Cr Clr Drug Dosing mL/min Estimated GFR (MDRD) ml/min Glucose (60-110) mg/dL Calcium (8.8-10.8) mg/dL Total Bilirubin (0.1-1.5) mg/dL AST (5-40) IU/L ALT (8-54) IU/L Alkaline Phosphatase (40-150) Troponin I (0.0-0.29) NG/ML C-Reactive Protein (0.0-0.5) mg/dL Total Protein (6.0-8.0) g/dL Albumin (3.5-5.0) g/dL Globulin (2.0-3.5) g/dL Albumin/Globulin Ratio (1.3-2.8) Amylase (10-90) U/L Lipase (7-80) U/L Urine Color YELLOW Urine Appearance CLEAR Urine pH 7.5 (5.0-8.0) Ur Specific [place] 1.015 (1.001-1.035) Urine Protein NEGATIVE (NEGATIVE) mg/dL Urine Glucose (UA) NEGATIVE (NEGATIVE) mg/dL Urine Ketones NEGATIVE (NEGATIVE) mg/dL Urine Occult Blood SMALL H (NEGATIVE) Urine Nitrite NEGATIVE (NEGATIVE) Urine Bilirubin NEGATIVE (NEGATIVE) Urine Urobilinogen 0.2 (<2.0) EU/dL Ur Leukocyte Esterase NEGATIVE (NEGATIVE) Urine RBC 0-2 (0-2/HPF) Urine WBC 0-1 (0-5/HPF) Ur Epithelial Cells OCCASIONAL (NONE-FEW) Urine Bacteria FEW (NEGATIVE) Departure - Departure Time of Disposition: 17:14 Disposition: Home, Self-Care 01 Condition: Good Clinical Impression: Abdominal pain Qualifiers: Abdominal location: left upper quadrant Qualified Code(s): R10.12 - Left upper quadrant pain - Discharge Information Additional Instructions: Medication as prescribed Strongly encouraged follow-up with general surgeon as referral was provided on previous visit again there information as below to call and arrange appointment Establish primary care provider [facility] - General Surgery Professional [facility] [address] [place] [address], [address] [place] [address] [facility] [address] [place] [address] The following information is given to patients seen in the emergency department who are being discharged to home. This information is to outline your options for follow-up care. We provide all patients seen in our emergency department with a follow-up referral. The need for follow-up, as well as the timing and circumstances, are variable depending upon the specifics of your emergency department visit. If you don't have a primary care physician on staff, we will provide you with a referral. We always advise you to contact your personal physician following an emergency department visit to inform them of the circumstance of the visit and for follow-up with them and/or the need for any referrals to a consulting specialist. The emergency department will also refer you to a specialist when appropriate. This referral assures that you have the opportunity for follow-up care with a specialist. All of these measure are taken in an effort to provide you with optimal care, which includes your follow-up. Under all circumstances we always encourage you to contact your private physician who remains a resource for coordinating your care. When calling for follow-up care, please make the office aware that this follow-up is from your recent emergency room visit. If for any reason you are refused follow-up, please contact the [facility] emergency department at and asked to speak to the emergency department charge nurse. - My Orders Last 24 Hours: My Active Orders 04/18/17 15:41 EKG Documentation Completion [RC] STAT - Assessment/Plan Last 24 Hours: My Active Orders 04/18/17 15:41 EKG Documentation Completion [RC] STAT
--- NOTE | 2017-04-18 16:10 | CR ---
Single view chest The heart lungs mediastinum and bony thorax are normal. The subtle infrahilar infiltrate on prior ex amination dated September 24, 2011 is longer present. There is no current abnormal finding. Impression: Normal chest
[2017-04-18 16:17] LABS: CHLORIDE,CL 111 mmol/L (98-110); SODIUM,NA 144 mmol/L (136-146)
[2017-04-18 16:44] VITALS: BP 117/85
== END 2017-04-18 17:24 | disposition home or self-care (01) ==
LOC: MW.ED 15:28
DX: R10.12 Left upper quadrant pain (principal); Z76.5 Malingerer [conscious simulation]; Z87.891 Personal history of nicotine dependence; E03.9 Hypothyroidism, unspecified; Z90.49 Acquired absence of other specified parts of digestive tract; Z85.038 Personal history of other malignant neoplasm of large intestine; Z79.899 Other long term (current) drug therapy; Z88.6 Allergy status to analgesic agent
CPT/HCPCS: 36415; 71010; 71010-26; 80053; 81001; 82150; 83690; 84484; 85025; 86140; 93005; 99283; 99285-25